=== PATIENT | male | born 1975 | race Caucasian/White ===

== ENCOUNTER → 2018-12-03 | Outpatient (CLI) | payer OTHER ==
--- NOTE | 2018-12-03 16:54 | US ---
EXAMINATION TYPE: US venous doppler duplex LE RT DATE OF EXAM: 12/03/2018 4:41 PM COMPARISON: NONE CLINICAL HISTORY: M79.661 R422.41 Pain swelling Right lower limb. Right lower leg pain and swelling , x 5 days SIDE PERFORMED: Right TECHNIQUE: The lower extremity deep venous system is examined utilizing real time linear array sonog armand with graded compression, doppler sonography and color-flow sonography. VESSELS IMAGED: External Iliac Vein (EIV) Common Femoral Vein Deep Femoral Vein Greater Saphenous Vein * Femoral Vein Popliteal Vein Small Saphenous Vein * Proximal Calf Veins (* superficial vessels) Right Leg: Appears negative for DVT, thrombus seen within superficial vessels right calf at patient' s area of concern IMPRESSION: No evidence of deep venous thrombosis. There is some superficial vein thrombosis in the c prison.
== END | disposition home or self-care (01) ==
LOC: RADUSWWP 16:14
PROVIDERS: ATTEND Family Medicine
DX: I82.811 Embolism and thrombosis of superficial veins of right lower extremity (principal)